=== PATIENT | male | born 1985 | race African-American/Black ===

== ENCOUNTER 2018-09-22 20:45 | Emergency (ER) | payer OTHER ==
[~2018-09-22] VITALS: Ht 180.3 cm; Wt 99.8 kg
[2018-09-22 20:56] VITALS: Ht 180.3 cm; Wt 99.8 kg
[2018-09-22 21:44] LABS: BASOPHIL % 0.3 % (0-2); PLATELET COUNT 203 x10^3mcL (130-400); RED CELL DISTRIBUTION WIDTH 14.1 % (11.5-14.5)
[2018-09-22 21:52] LABS: CALCIUM 8.7 mg/dL (8.5-10.1); CARBON DIOXIDE 27.1 mmol/L (21-32); CHLORIDE SERUM 98 mmol/L (98-107); CREATININE SERUM 1.3 mg/dL (0.7-1.3); GFR1 > 60 mL/min; GLUCOSE SERUM 81 mg/dL (74-106); POTASSIUM SERUM 3.6 mmol/L (3.5-5.1); SODIUM SERUM 134 mmol/L (136-145)
[2018-09-22 21:58] LABS: ALBUMIN 3.5 g/dL (3.4-5.0); ALKALINE PHOSPHATASE 84 U/L (46-116); ALT/SGPT 57 U/L (16-63); AST/SGOT 64 U/L (15-37); BILIRUBIN TOTAL 0.2 mg/dL (0.20-1.00)
[2018-09-22 22:32] LABS: microscopic required? NO
[2018-09-22 22:49] LABS: UA SPECIFIC GRAVITY <=1.005 (1.005-1.035); urine erythrocyte NEGATIVE (NEGATIVE)
[2018-09-22 23:25] LABS: AMPHETAMINE QUAL UR NONE DETECTED (See below)
[2018-09-22 23:54] VITALS: BP 124/70
== END 2018-09-22 23:54 | disposition home or self-care (01) ==
LOC: ED 20:45
PROVIDERS: Emergency Medicine
DX: M79.10 Myalgia, unspecified site (principal); R51 Headache
CPT/HCPCS: G0480; J7030

== ENCOUNTER 2018-10-30 10:07 | Emergency (ER) | payer OTHER ==
[2018-10-30 11:02] LABS: BASOPHIL % 0.2 % (0-2); PLATELET COUNT 175 x10^3mcL (130-400); RED CELL DISTRIBUTION WIDTH 13.1 % (11.5-14.5)
[2018-10-30 11:09] LABS: CALCIUM 8.8 mg/dL (8.5-10.1); CARBON DIOXIDE 27.9 mmol/L (21-32); CHLORIDE SERUM 104 mmol/L (98-107); CREATININE SERUM 1.2 mg/dL (0.7-1.3); GFR1 > 60 mL/min; GLUCOSE SERUM 77 mg/dL (74-106); POTASSIUM SERUM 4.2 mmol/L (3.5-5.1); SODIUM SERUM 139 mmol/L (136-145)
[2018-10-30 11:16] LABS: microscopic required? NO
[2018-10-30 11:20] LABS: urine erythrocyte NEGATIVE (NEGATIVE)
[2018-10-30 11:21] LABS: ALBUMIN 3.6 g/dL (3.4-5.0); ALKALINE PHOSPHATASE 90 U/L (46-116); ALT/SGPT 45 U/L (16-63); AST/SGOT 37 U/L (15-37); BILIRUBIN TOTAL 0.45 mg/dL (0.20-1.00); T4(THYROXINE) 6.9 ug/dL (4.7-13.3); TOTAL PROTEIN, SERUM 7.5 g/dL (6.4-8.2)
[2018-10-30 11:29] LABS: AMPHETAMINE QUAL UR NONE DETECTED (See below)
[2018-10-30 13:35] VITALS: BP 135/71
== END 2018-10-30 13:35 | disposition home or self-care (01) ==
LOC: ED 10:07
PROVIDERS: Emergency Medicine
DX: R51 Headache (principal); R00.2 Palpitations; F12.90 Cannabis use, unspecified, uncomplicated; M62.82 Rhabdomyolysis
CPT/HCPCS: 36415